=== PATIENT | male | born 2005 | race Caucasian/White ===

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

== ENCOUNTER 2024-05-29 13:59 | Emergency (ER) | payer BC, OTHER ==
[2024-05-29] MEDS ORDERED: Lidocaine/Transparent Dressing 1 EACH KIT ONE (14:15)
[2024-05-29] MEDS ORDERED: Bacitracin 1 PK ONE (15:05)
[2024-05-29] MEDS ORDERED: Ibuprofen 200 MG TAB ONE (15:05)
== END 2024-05-29 15:13 | disposition home or self-care (01) ==
LOC: BURERS 13:59
DX: S01.01XA Laceration without foreign body of scalp, initial encounter (principal); F17.290 Nicotine dependence, other tobacco product, uncomplicated; W22.8XXA Striking against or struck by other objects, initial encounter
CPT/HCPCS: 12002; 99282